=== PATIENT | male | born 1995 | race Caucasian/White ===

== ENCOUNTER → 2017-01-06 | Outpatient (CLI) | payer BC ==
[~2017-01-06] MED LIST: ZOLOFT 50MG50 MG PO
== END ==
LOC: BHSO 12:50
DX: F33.1 Major depressive disorder, recurrent, moderate (principal)

== ENCOUNTER → 2017-03-23 | Outpatient (CLI) | payer BC | LOC: BHSO 15:51 | DX: F41.1 Generalized anxiety disorder (principal) ==

== ENCOUNTER → 2020-06-01 | Outpatient (CLI) | payer BC | LOC: BHSO 10:57 | DX: F33.2 Major depressive disorder, recurrent severe without psychotic features (principal) ==

== ENCOUNTER → 2020-06-12 | Outpatient (CLI) | payer BC | LOC: BHSO 15:37 | DX: F33.1 Major depressive disorder, recurrent, moderate (principal) | CPT/HCPCS: G0463 ==